=== PATIENT | female | born 1950 | race Hispanic/Latino ===

== ENCOUNTER 2019-06-20 14:34 | Outpatient (CLI) | payer MEDICARE ==
--- NOTE | 2019-06-21 09:39 | Mammography Report ---
DIGITAL SCREENING MAMMOGRAM WITH CAD, 06/20/2019 INDICATION: Routine screening mammography. Status post bilateral reduction mammoplasty. TECHNIQUE: Digital bilateral 2D mammography was obtained in the craniocaudal and mediolateral obliq ue projections. This examination was interpreted with the benefit of Computer-Aided Detection analysi s. COMPARISON: 02/10/2018 FINDINGS: Breast Density: The breasts are almost entirely fatty. A right outer focal asymmetry requires additional imaging. No architectural distortion or suspicious calcifications of the right breast. Bilateral benign calcifications. There is no evidence of dominant mass, suspicious calcifications or architectural distortion in the left breast. IMPRESSION: Right focal asymmetry requiring additional imaging. Recommend recall for right spot compr ession views and right breast ultrasound if needed. Follow up recommendation: Special View: Spot Category 0: Incomplete. Needs additional imaging evaluation and/or prior mammograms for comparison. A "normal" or negative report should not discourage follow up or biopsy of a clinically significant f inding. A written summary of these findings will be mailed to the patient. The patient will be entered into a mammography reporting system which will generate a reminder letter for the patient's next appointmen t at the appropriate interval. The [employer] recommends yearly mammograms starting at age 40 and continuing as l raymond as a woman is in good health. Breast MRI is recommended for women with an approximate 20-25% or greater lifetime risk of breast cancer, including women with a strong family history of breast or ova diana cancer or who have been treated for Hodgkin's disease. Signer Name: Rakan Gutiérrez MD Signed: 06/21/2019 9:34 AM Workstation Name: [id number]
== END 2019-06-20 14:35 | disposition home or self-care (01) ==
LOC: SPVWC 14:34
PROVIDERS: ATTEND Family Medicine
DX: Z12.31 Encounter for screening mammogram for malignant neoplasm of breast (principal); N64.89 Other specified disorders of breast
CPT/HCPCS: 77067

== ENCOUNTER 2019-07-09 14:09 | Outpatient (CLI) | payer MEDICARE ==
--- NOTE | 2019-07-09 15:32 | Ultrasound Report ---
RIGHT DIGITAL DIAGNOSTIC MAMMOGRAM WITH CAD 07/09/2019 RIGHT LIMITED BREAST ULTRASOUND INDICATION: Recall to evaluate mammographic asymmetry. ABNORMAL MAMMOGRAM TECHNIQUE: Digital right mammographic imaging was performed. Spot compression views were obtained. L imited ultrasound was performed. This examination was interpreted with the benefit of Computer-Aided Detection (CAD) analysis. COMPARISON: 06/20/2019 FINDINGS: Breast Density: The breasts are almost entirely fatty. MAMMOGRAPHIC FINDINGS: A mammographic asymmetry persists on spot compression MLO and CC views. ULTRASOUND FINDINGS: Targeted ultrasound evaluation was performed of the area of interest. Ultrasou nd of the upper outer right breast was performed and demonstrated an irregular complex cyst versus so lid mass at 9:00 8 cm from the nipple. It measures 5 x 3 x 6 mm. It is further from the nipple than t he mammographic density. An irregular heterogeneous isoechoic island of fibroglandular structures at 10:00 4 cm from the nipple appears to correlate with the mammographic asymmetry. It has benign featur es. IMPRESSION: 1. A probably benign mammographic asymmetry corresponding to an island of benign fibroglandular struc tures at 10:00 4 cm from the nipple. Recommend 6 month follow-up of this lesion. 2. A 6 mm complex cyst versus solid mass at 9:00 8 cm from the nipple. Recommend ultrasound-guided cy st aspiration/biopsy of this lesion. The patient was informed of the recommendation for a cyst aspiration/biopsy of the right breast. Follow up recommendation: Biopsy BI-RADS Category 4: Suspicious for Malignancy. A "normal" or negative report should not discourage follow up or biopsy of a clinically significant f inding. A written summary of these findings will be mailed to the patient. The patient will be entered into a mammography reporting system which will generate a reminder letter for the patient's next appointmen t at the appropriate interval. According to the [employer], yearly mammograms are recommended starting at age 40 and continuing as long as a woman is in good health. Breast MRI is recommended for women with an eri roximately 20-25% or greater lifetime risk of breast cancer, including women with a strong family his tory of breast or ovarian cancer and women who have been treated for Hodgkin's disease. Signer Name: Rakan Gutiérrez MD Signed: 07/09/2019 3:28 PM Workstation Name: [id number]
== END 2019-07-09 14:10 | disposition home or self-care (01) ==
LOC: SPVWC 14:09
PROVIDERS: ATTEND Family Medicine
DX: N60.01 Solitary cyst of right breast (principal); N63.41 Unspecified lump in right breast, subareolar

== ENCOUNTER 2019-11-21 12:28 | Outpatient (CLI) | payer MEDICARE ==
--- NOTE | 2019-11-21 16:20 | Magnetic Resonance Report ---
BILATERAL BREAST MRI WITH AND WITHOUT CONTRAST CLINICAL INFORMATION/INDICATION: Benign mammary dysplasias. Family history of breast cancer. TECHNICAL: Coronal STIR, axial T1 and T2-weighted fat sat images were obtained precontrast. 18 cc Mul tiHance contrast was injected intravenously and serial axial T1 weighted images with fat saturation w ere obtained. 3-D MIP projections, kinetic analysis and subtraction imaging was utilized to evaluate. A dedicated 8-channel breast coil was used for image acquisition. COMPARISON: 10/02/2016, 07/25/2019 FINDINGS: Right breast: Scattered fibroglandular tissue is seen with low background parenchymal enhancement. Ex pected postoperative change is noted along the 9:00 and 10:00 positions without visualization of a ma ss, suspicious focus of enhancement, lymphadenopathy or other significant abnormality. Left breast: Scattered fibroglandular tissue is seen with low background parenchymal enhancement. No mass, suspicious focus of enhancement, lymphadenopathy or other significant abnormality is seen. Additional findings: None. IMPRESSION: Expected postoperative changes in the right breast without evidence of malignancy. Continued annual s creening mammography is recommended. Follow up recommendation: Routine yearly BI-RADS Category 2: Benign. Signer Name: Santiago Bonilla MD Signed: 11/21/2019 4:16 PM Workstation Name: [id number]
== END 2019-11-21 12:29 | disposition home or self-care (01) ==
LOC: SPVIMAG 12:28
PROVIDERS: ATTEND Surgery
DX: N60.81 Other benign mammary dysplasias of right breast (principal); Z80.3 Family history of malignant neoplasm of breast
CPT/HCPCS: A9577; C8908; 77049

== ENCOUNTER 2020-04-01 09:57 | Outpatient (CLI) | payer MEDICARE ==
--- NOTE | 2020-04-01 10:52 | Mammography Report ---
DIGITAL DIAGNOSTIC MAMMOGRAM WITH CAD , 04/01/2020 CLINICAL INFORMATION / INDICATION: PERSONAL HX OF RIGHT BREAST CA TECHNIQUE: Digital right mammographic imaging was performed. This examination was interpreted with the benefit of Computer-aided Detection analysis. COMPARISON: Recent prior mammograms 06/20/2019, 07/09/2019, including right needle localization and surg ical specimen, 10/03/2019 FINDINGS: Breast Density: The breasts are almost entirely fatty. No dominant mass, suspicious calcifications or architectural distortion in the right breast. Previous ly seen abnormal finding in the right lateral breast with associated biopsy clip has been removed zuhair gically in the interim. There is a postsurgical scar in the 9-10:00 position. IMPRESSION: No mammographic evidence of malignancy. Follow up recommendation: Routine yearly-patient will be due for annual screening mammogram in June 2020 BI-RADS Category 2: Benign. A "normal" or negative report should not discourage follow up or biopsy of a clinically significant f inding. A written summary of these findings will be mailed to the patient. The patient will be entered into a mammography reporting system which will generate a reminder letter for the patient's next appointmen t at the appropriate interval. According to the [employer], yearly mammograms are recommended starting at age 40 and continuing as long as a woman is in good health. Breast MRI is recommended for women with an eri roximately 20-25% or greater lifetime risk of breast cancer, including women with a strong family his tory of breast or ovarian cancer and women who have been treated for Hodgkin's disease. Signer Name: Radha Galvin MD Signed: 04/01/2020 10:48 AM Workstation Name: [id number]
== END 2020-04-01 09:58 | disposition home or self-care (01) ==
LOC: SPVWC 09:57
PROVIDERS: ATTEND Surgery
DX: Z85.3 Personal history of malignant neoplasm of breast (principal); Z98.890 Other specified postprocedural states

== ENCOUNTER 2020-06-30 10:08 | Outpatient (CLI) | payer MEDICARE, BC ==
--- NOTE | 2020-06-30 12:25 | Mammography Report ---
DIGITAL SCREENING MAMMOGRAM WITH TOMOSYNTHESIS WITH CAD, 06/30/2020 CLINICAL INFORMATION / INDICATION: Routine Screening Mammography. TECHNIQUE: Digital bilateral 2D and 3D mammography with tomosynthesis was obtained in the craniocaud al and mediolateral oblique projections. Computer-Aided Detection (CAD) analysis was used for interp retation of this study. COMPARISON: Diagnostic right mammogram from 04/01/2020, breast MRI from 11/21/2019, diagnostic right ma mmograms from 07/25/2019 and 07/09/2019, screening mammograms from 06/20/2019 and 02/10/2018 FINDINGS: Breast Density: There are scattered areas of fibroglandular density. No dominant mass, suspicious calcifications, or architectural distortion in either breast. Upper outer right breast lumpectomy changes are noted with bilateral benign-appearing calcifications. IMPRESSION: No mammographic evidence of malignancy. Follow up recommendation: Routine yearly BI-RADS Category 2: Benign. A "normal" or negative report should not discourage follow up or biopsy of a clinically significant f inding. A written summary of these findings will be mailed to the patient. The patient will be entered into a mammography reporting system which will generate a reminder letter for the patient's next appointmen t at the appropriate interval. The [employer] recommends yearly mammograms starting at age 40 and continuing as l raymond as a woman is in good health. Breast MRI is recommended for women with an approximate 20-25% or greater lifetime risk of breast cancer, including women with a strong family history of breast or ova diana cancer or who have been treated for Hodgkin's disease. Signer Name: Santiago Bonilla MD Signed: 06/30/2020 12:21 PM Workstation Name: [id number]
== END 2020-06-30 10:09 | disposition home or self-care (01) ==
LOC: SPVWC 10:08
PROVIDERS: ATTEND Surgery
DX: Z12.31 Encounter for screening mammogram for malignant neoplasm of breast (principal); N64.89 Other specified disorders of breast
CPT/HCPCS: 77063; 77067